=== PATIENT | female | born 1985 | race Caucasian/White ===

== ENCOUNTER 2024-03-06 00:18 | Day surgery (SDC) | payer OTHER, SELFPAY ==
[2024-02-25 14:01] VITALS: BMI 29.9
--- NOTE | 2024-02-26 11:50 | SUR.PREOP ---
Report to the Outpatient Waiting Room, entrance under the green pavilion located off [facility], at time 0830 on date 03/06/2024. Planned Procedure Time:0630.? Time changes happen often and if your time is changed the preop area will call you the afternoon before. - You and your visitor will be asked to self-screen and do not enter if you have any COVID symptoms. Please call surgeon if you need to reschedule. - A mask is optional within the hospital at this time. Patients may have clear liquids (water, carbonated beverages, clear teas, apple juice) until 3 hours prior to surgery with a maximum of 20 ounces. - No food from midnight until time of surgery and no smoking. This includes no chewing gum, candy or mints. Take only the following medications with a SIP of water on the morning of surgery: n/a DO NOT STOP ANY OF YOUR OTHER PRESCRIPTION MEDICATIONS PRIOR TO SURGERY EXCEPT THE FOLLOWING Medications to discontinue per physician n/a Please no make-up, nail yakut, hairspray, perfume, deodorant, or body powder the day of surgery.? No jewelry (including any body piercings) or valuables the day of surgery, leave them at home.? Please take a shower or bath the night before, or the morning of, surgery with an antibacterial soap.? Wear comfortable, loose fitting clothing.? Children are encouraged to wear pajamas. - Jewelry must be removed prior to entering the operating room.? Rings and piercings that are not removed may be cut off. - The hospital will not accept responsibility for valuables.? - Please leave all valuables, including medications, at home the day of surgery. If you are going home after surgery, a licensed chain saw driver must drive you home.? - NO public transportation without another adult if you receive anesthesia. - We recommend that an adult stay with you for 24 hours following discharge. - We also recommend that you do not drive, make important decision, drink alcoholic beverages, or take any drugs that were not prescribed by your health care provider for at least 24 hours after your discharge time. For Pediatric surgeries, we recommend two adults accompany the child home. Follow any additional instructions given to you from your surgeon. Telephone instructions given to patient and asked if any additional questions and then verbalized understanding. Patient advised to call surgeon office or pre surgery nurse liaison [phone] if any additional questions.
--- NOTE | 2024-03-03 11:51 | P.HP_ITS ---
H&P: HPI History of Present Illness Date/Time: 03/03/24 11:51 Chief Complaint: 39-year-old female desires permanent sterilization Narrative: This is a 39-year-old female who desires permanent and irreversible ster ilization. She has been on the pill and desires no pregnancies. She was offered pills patches IUDs cetera. She has not done well with any of these medications she decided upon permanent sterilization she understands this to be completely irreversible. Risks and benefits were reviewed in great details. She received the [employer] handout entitled sterilization for men and women. She asked to proceed Review of Systems Review of Systems: All systems reviewed & are unremarkable except as noted in HPI and below PMFSH Social History Social History Years smoked: 3 Smoking status: Former smoker Tobacco type: cigarettes Smoking end date: 02/23/13 Alcohol intake: current Alcohol use details: Very rare Substance use: current Substance use type: marijuana Last use: 02/24/2024 Living arrangements: with family Spiritual care concerns: No Meds Home Medications and Allergies Home Medications ?Medication ?Instructions ?Recorded ?Confirmed ?Type norethindrone 1 mg-ethinyl See Rx Instructions .Route .COMPLEX 02/25/24 02/25/24 History estradiol 20 mcg (21)-iron 75 mg (7) tablet (Blisovi Fe 04/13 (28)) Allergies Allergy/AdvReac Type Severity Reaction Status Date / Time No Known Allergies Allergy Verified 02/25/24 13:58 Exam Const: General: cooperative, healthy appearing and comfortable Nutritional Appearance: average body habitus Orientation/consciousness: oriented to person, oriented to place and oriented to time Resp: Effort & Inspection: normal respiratory effort Cardio: Rate: regular rate Rhythm: regular rhythm Heart sounds: S1 normal heart sound present and S2 normal heart sound present GI: Inspection: normal to inspection Auscultation: normal bowel sounds : External Female Exam: normal external appearance Speculum Exam - Vagina: normal appearance of the vagina Speculum Exam - Cervix: normal appearance of the cervix Bimanual exam- vagina & uterus: normal bimanual exam Assessment and Plan Assessment and plan (1) Sterilization: Code(s): Z30.2 - Encounter for sterilization Status: Acute Plan Proceed with laparoscopic bilateral tubal ligation
[2024-03-06] VITALS (8 sets, daily range): BP systolic 113–133; BP diastolic 63–91; PULSE 70–89; RESP 16–20; TEMP 36.6; O2SAT 98–100
--- NOTE | 2024-03-06 01:00 | WPDHPUPDATE1 ---
History and Physical Update Update Date/Time: 03/06/24 01:00 History and Physical has been reviewed, including an updated exam of the patient. There are NO changes in the patient's condition. Risks, benefits, and alternatives have been discussed and questions answered. Patient agrees to proceed with procedure.
--- NOTE | 2024-03-06 01:01 | WPDHPUPDATE1 ---
History and Physical Update Update Date/Time: 03/06/24 01:01 History and Physical has been reviewed, including an updated exam of the patient. There are NO changes in the patient's condition. Risks, benefits, and alternatives have been discussed and questions answered. Patient agrees to proceed with procedure.
[2024-03-06] MEDS: LACTATED RINGERS 1,000 ML 30 ML IV CONT (07:25)
[2024-03-06] MEDS: KETOROLAC 15 MG/ML VIAL (*BKC) IV PUSH (07:45)
[2024-03-06] MEDS: ACETAMINOPHEN 500 MG TABLET 1000 MG PO (07:45)
--- NOTE | 2024-03-06 07:56 | P.PNAN_ITS ---
Anes - Initial Pre Proc Eval Procedure: Operation Date: 03/06/24 08:30 Proposed Procedures p Laparoscopic Bilateral Salpingectomy - Kartik Romo MD Date/Time: 03/06/24 07:56 Surgeon: Kartik Romo MD Pre Op Diagnosis: desires sterilization Patient Data Age: 39 Gender: F Height: 1.65 m Weight: 81.8 kg Allergies Allergy/AdvReac Type Severity Reaction Status Date / Time No Known Allergies Allergy Verified 02/25/24 13:58 Home Medications ?Medication ?Instructions ?Recorded ?Confirmed ?Type norethindrone 1 mg-ethinyl See Rx Instructions .Route .COMPLEX 02/25/24 02/25/24 History estradiol 20 mcg (21)-iron 75 mg (7) tablet (Blisovi Fe 04/13 (28)) hydrocodone 5 mg-acetaminophen 325 1 tablet PO Q4H PRN pain #20 tabs 03/06/24 Rx mg tablet Patient hx anesthesia problems: none Family hx anesthesia problems: none Results Review: All pre-operative results and documents have been reviewed as part of the pre- operative evaluation. [facility] Social History Social History Years smoked: 3 Smoking status: Former smoker Tobacco type: cigarettes Smoking end date: 02/23/13 Alcohol intake: current Alcohol use details: Very rare Substance use: current Substance use type: marijuana Last use: 02/24/2024 Living arrangements: with family Spiritual care concerns: No Anes - Eval Final PreProcedure Day of Procedure 03/06/24 07:56 Patient weight: obese Heart: regular rate and rhythm Lungs: clear to auscultation Airway: Mallampati scale class II Neurological: alert and oriented Last oral intake: >/= 8 hours ASA classification: II Emergent: no Anesthetic plan: proceed Anesthesia type and monitoring: general ETT and standard monitoring Results Review: All pre-operative results and documents have been reviewed as part of the pre- operative evaluation. Informed Consent: The patient's anesthetic plan and its attendant risks and benefits were discussed with the patient/family/POA. Questions were solicited and answers provided to the satisfaction of the patient/family/POA.
[2024-03-06 08:40] LABS: BEDSIDEPREGUCG Negative (Negative)
--- NOTE | 2024-03-06 09:00 | W.PM.PROC2 ---
Procedure Note - Detailed Date of Procedure 03/06/24 Pre-op Diagnosis desires sterilization Post-op Diagnosis Same Procedure Performed Laparoscopic bilateral salpingectomy Surgeon Kartik Romo MD Anesthesia General Indications 39-year-old female who desires permanent irreversible sterilization Findings normal-appearing ovaries tubes uterus the appendix appeared to be surgically Description of Procedure patient was prepped and draped in the normal sterile fashion placed in dorsal lithotomy position. Excellent endotracheal anesthesia weighted speculum placed in posterior fornix. Anterior lip of the cervix grasped with single-tooth tenaculum. Muller's cannula inserted the cervix and attached to the single-tooth to be used later for uterine manipulation. Bladder drained clear urine the weighted speculum was removed. The gloves were changed. A supraumbilical incision made the Veress needle passed in the abdomen. Abdomen filled with CO2 gas [id number]. The 5mm trocar advanced under direct visualization with the Optiview and no injury seen. Patient placed in Trendelenburg and right left lateral quadrant incisions made. 5Mm trocars advanced under direct visualization assuring no injury. The left fallopian tube was grasped using the 5mm LigaSure was serially clamped burned cut away from the ovarian complex up to the origin at the uterus. This was then clamped burned and cut. This was passed off as portion of left fallopian tube. In similar fashion on the right the right fallopian tube was grasped and serially clamped burned and cut away from the ovarian complex to the uterine origin where it was clamped cut and burned and removed this was marked as portion of right fallopian tube. Hemostasis was assured. The appendix appeared surgically absent and no other abnormalities were seen. The lower sites removed. The upper site removed after gas removed from the abdomen. The incisions closed with 4-0 Monocryl and glue. The instruments removed from vagina and the patient was awakened went to recovery in satisfactory condition. All sponge, needle, instrument counts were correct. Were no immediate complications Estimated Blood Loss 5 Drains No Packing No Pathology Yes Complications No immediate complications Condition Stable Disposition PACU
[2024-03-06] MEDS: fentaNYL CITRATE INJ (*CRX) 100 MCG/2 ML VIAL 25 MCG IV PUSH ×3 (09:36→09:45)
[2024-03-06] MEDS: oxyCODONE HCL (*CRX) 5 MG TAB IR PO ×2 (10:29)
== END 2024-03-06 11:01 | disposition home or self-care (01) ==
PROVIDERS: PCP Family Medicine; Visit Provider Obstetrics & Gynecology
PROC: (CPT 58671; principal; 2024-03-06 08:30)
DX: Z30.2 Encounter for sterilization (principal); E66.9 Obesity, unspecified; F12.90 Cannabis use, unspecified, uncomplicated; Z87.891 Personal history of nicotine dependence; Z68.30 Body mass index [BMI] 30.0-30.9, adult
CPT/HCPCS: 58661; 88302; A9270; J1100; J1885; J2003; J2250; J2405; J2704; J3010; J7120